=== PATIENT | female | born 1980 | race Caucasian/White ===

== ENCOUNTER 2016-12-18 08:25 | Day surgery (SDC) | payer MEDICARE, MEDICAID ==
[~2016-12-18] VITALS: Ht 157.5 cm; Wt 78.0 kg
[2016-12-18] VITALS (7 sets, daily range): BP systolic 108–137; BP diastolic 55–78
[~2016-12-18 08:25] MED LIST: GABA-283 PO; KLON0.5T PO; OXYC15TA76 PO; PROAAER10 INH; TIZA4CAP3 PO; TOPA200T7 PO
[2016-12-18] MEDS ORDERED: LR 1,000 ML IV SCH ×2 (08:45→16:15)
[2016-12-18] MEDS ORDERED: CLINDAMYCIN 900 MG/50 ML PREMIX BAG As Ordered ONE (08:48)
[2016-12-18] MEDS ORDERED: CLINDAMYCIN 900 MG in APPROPRIATE DILUENT 1 EA IV ONE (09:00)
[2016-12-18] MEDS ORDERED: DICY20TA11 (09:04)
[2016-12-18] MEDS ORDERED: DIAZ2TAB PO (09:04)
[2016-12-18] MEDS ORDERED: BELS1TAB2 (09:04)
[2016-12-18] MEDS ORDERED: MIDAZOLAM INJ 2 MG/2 ML VIAL (J2250) As Ordered ONE (10:24)
[2016-12-18] MEDS ORDERED: LIDOCAINE 2% INJ 100 MG/5 ML SDV (FOR ANES.) As Ordered ONE (10:24)
[2016-12-18] MEDS ORDERED: ROCURONIUM BROMIDE 50 MG/5 ML VIAL As Ordered ONE (10:24)
[2016-12-18] MEDS ORDERED: fentaNYL 100 MCG/2 ML INJECTION (J3010) As Ordered ONE ×4 (10:24→15:15)
[2016-12-18] MEDS ORDERED: dexameTHASONE 4 MG/ML 1ML VIAL (J1100) As Ordered ONE (10:24)
[2016-12-18] MEDS ORDERED: PROPOFOL 200 MG/20 ML VIAL As Ordered ONE ×5 (10:24→14:24)
[2016-12-18] MEDS ORDERED: NICOTINE 21MG/24HR 1 EA TRANSDERMAL TD ONE (10:30)
[2016-12-18] MEDS ORDERED: ALBUTEROL SULFATE 2.5 MG/0.5 ML INH NEB SOLN INH ONE (10:30)
[2016-12-18] MEDS ORDERED: BACITRACIN PWD 50,000 UNITS VIAL As Ordered ONE (11:08)
[2016-12-18] MEDS ORDERED: BUPIVACAINE HCL 0.5% 10 ML VIAL As Ordered ONE (11:08)
[2016-12-18] MEDS ORDERED: BUPIVACAINE LIPOSOME/PF 1.3% 20 ML VIAL (13.3MG/ML)(EXPAREL) As Ordered ONE (11:08)
[2016-12-18] MEDS ORDERED: REMIFENTANIL 1MG 3ML VIAL As Ordered ONE (11:52)
[2016-12-18] MEDS ORDERED: SUGAMMADEX SODIUM 500 MG/5 ML VIAL (BRIDION) As Ordered ONE (13:35)
[2016-12-18] MEDS ORDERED: HYDROmorphone HCL 2 MG/ML 1ML VIAL (J1170) As Ordered ONE (13:40)
[2016-12-18] MEDS ORDERED: diphenhydrAMINE INJ 50MG/ML VIAL (J1200) As Ordered ONE (14:31)
--- NOTE | 2016-12-18 15:48 | REP ---
Partial thoracic spine series: Three views. History: Low back pain. 32 seconds of fluoroscopy time is reported. Findings: A sequence of three last image hold fluoroscopic spot views of the thoracic spine and abdomen document dorsal column stimulator placement. Signed by Sean Rush MD 12/18/2016 03:41 P
[2016-12-18] MEDS ORDERED: fentaNYL 100 MCG/2 ML INJECTION (J3010) IV PRN (16:15)
[2016-12-18] MEDS ORDERED: ONDANSETRON 4MG/2ML VIAL (J2405) IV PRN ×2 (16:15)
[2016-12-18] MEDS: HYDROmorphone HCL 1 MG/ML SYRINGE (J1170) IV PRN ×5 (16:27→16:47)
[2016-12-18] MEDS ORDERED: clonazePAM 0.5 MG TAB PO PRN (18:00)
[2016-12-18] MEDS: ACETAMINOPHEN TAB 650MG DOSE (2X325MG) PO SCH ×2 (19:08→21:08)
[2016-12-18] MEDS: VANCOMYCIN HCL 1,000 MG, VIAL MATE ADAPTER 1 EACH in D5W 250 ML IV SCH (19:08)
[2016-12-18] MEDS: DICYCLOMINE 10 MG CAP PO SCH (19:09)
[2016-12-18] MEDS: GABAPENTIN 400 MG CAP PO SCH (19:09)
[2016-12-18] MEDS: oxyCODONE 5MG TAB PO PRN (20:19)
[2016-12-18] MEDS ORDERED: ENTER DRUG NAME HERE (PATIENT'S OWN MED) PO SCH (21:00)
[2016-12-18] MEDS ORDERED: TOPIRAMATE (TopAMAX) 100 MG TAB PO SCH (21:00)
[2016-12-18] MEDS: tiZANidine 4 MG TAB PO SCH (21:08)
[2016-12-19] VITALS: BP 108/59
[2016-12-19] MEDS: oxyCODONE 5MG TAB PO PRN ×3 (00:20→08:44)
[2016-12-19] MEDS: ACETAMINOPHEN TAB 650MG DOSE (2X325MG) PO SCH ×2 (01:07→06:00)
[2016-12-19 04:00] VITALS: BP 111/67
[2016-12-19] MEDS: VANCOMYCIN HCL 1,000 MG, VIAL MATE ADAPTER 1 EACH in D5W 250 ML IV SCH (04:24)
[2016-12-19] MEDS: tiZANidine 4 MG TAB PO SCH (05:51)
[2016-12-19] MEDS: DICYCLOMINE 10 MG CAP PO SCH (08:43)
[2016-12-19] MEDS: GABAPENTIN 400 MG CAP PO SCH (08:43)
[2016-12-19 08:45] VITALS: BP 114/64
--- NOTE | 2016-12-19 19:43 | ROOPDOC ---
[facility] Report Of Operation Report of Operation DATE OF SURGERY: 12/18/2016 SURGEON: Dr. Diego Ellison MANAGER LEGAL: N/a PREOPERATIVE DIAGNOSIS: Intractable back and right leg pain. POSTOPERATIVE DIAGNOSIS: Same PROCEDURE PERFORMED: 1. Partial bilateral laminectomy T9-T10. 2. Insertion of epidural spinal cord stimulator at T7-8 ([employer], [place] [employer]). 3. Electronic programming and interrogation of battery analysis ([employer], [employer] 4. Subcutaneous implantation of pulse stimulator through separate incision. 5. lntra-operative use of C-arm fluoroscopy. 6. Electrophysiological monitoring of somatosensory and central motor evoked potentials of upper and lower extremities ANESTHESIA: GETA. ESTIMATED BLOOD LOSS: 50 cc. FINDINGS : Normal dura of thoracic spinal cord. DRAINS: 0 COMPLICATIONS: None. DISPOSITION: Stable to the PACU. INDICATIONS FOR THE PROCEDURE HISTORY: Mrs. Palmer is a 36 y/o F with signs, symptoms and radiographic evidence of intractable back and right leg pain without history of post- laminectomy syndrome. She has been treated with (physical therapy, multiple pain medications, nerve blocks) with failure to address the symptomatology and decided to undergo insertion of a spinal cord stimulator. She underwent successful trial placement by [facility] and wished to have a permanent SCS implanted. SURGICAL RISKS: The patient and her family were well apprised of all objectives, benefits, risks and potential complications of the procedure, including but not limited to : worsening of current status, the possible need for further procedures, the risk of infection, headaches, CSF leak, possible spinal nerve injury resulting in paralysis, infection, injury to major vessels causing hemorrhage, stroke, loss of language function, coma and even . No assurance was given whether symptoms would improve following the procedure. The surgery is technically difficult procedure and despite the significant discomfort for the patient and the best effort of the physician, the surgery may be unsuccessful or may need to be aborted. Informed consent was obtained and secured in the chart after the patient and family voiced understanding of these risks and decided to proceed with the operation. DESCRIPTION OF THE PROCEDURE The patient was transferred to the operating room. He was given preoperative prophylactic IV antibiotics. ANESTHESIA: The patient was sedated and intubated without difficulty by the anesthesia service. Eyes were taped shut after ointment was applied to prevent corneal abrasion. A Ellen Hugger was placed over the upper body to maintain control of core body temperature. The electrophysiology monitoring team inserted needles in their proper locations and baseline SSEPs and motor-evoked potentials were obtained. POSITIONING: The patient was turned prone on gel pads of Thony table. All pressure points were carefully padded. OPERATIVE TECHNIQUE: The patient was prepped and draped in the standard sterile fashion. The C-arm fluoroscopy was draped and brought in to the operative field and the T9-T10 was identified. The skin was subsequently opened sharply with a # 15 scalpel blade. Dissection was carried down superiorly and inferiorly in the midline to expose supraspinous ligament and laminas. The musculature was elevated subperiosteally to expose the facets bilaterally with electrocautery and Lux elevator. Hemostasis was achieved. Self-retaining retractors were then inserted. Spinal processes resection and partial laminectomy of T9 and T10 levels were performed. An ultrasound bone dissector Bone[employer]pel was used to remove T9and T10 laminas. The ligamentum flavum was then easily removed with Kerrison roungers. Epidural space was dissected with plastic dissector from [employer] Bleeding from epidural veins has been controlled bipolar cautery. 32-contact assistant professor surgical technology has been inserted to the level of middle T7 vertebra into the epidural space without difficulty. Placement has been confirmed by C-arm fluoroscopy. The skin over the Right flank an approximately 5 cm incision performed with a # 15 scalpel blade. A pocket was developed for placement of the battery pulse generator. Utilizing a sharp trocar, a plastic cannula was brought from the spinal incision down into the flank incision; left in place and the electrodes passed through. The electrodes were then connected to the battery pulse. At this point, the pulse generator senior clinical sas programmer was brought near the operative field. The battery pulse generator was interrogated intraoperatively and programmed. The stimulator was set wiressly. The battery pulse generator was then secured to the fascia utilizing absorbable suture. In the spine incision, the electrodes were secured to the fascial edge silk suture as well. The fascial planes and the muscles were approximated utilizing 0 polyglactin synthetic absorbable suture Vicryl. The wound was irrigated copiously with antibiotic saline solution. The skin was re-approximated with interrupted 2-0 polyglactin synthetic absorbable suture Vicryl. The skin was then closed with Dermabond. The flank wound was also copiously irrigated with antibiotic saline solution and closed in layers utilizing 1-0 and 3-0 polyglactin synthetic absorbable suture Vicryl. The skin was then closed with wound closing system Prineo. Utilizing the pulse generator senior clinical sas programmer, verification was obtained at the end of the case to ensure adequate output reading from the newly placed device. All sponge counts, needle counts and instrument counts were correct at the end of the case times two. The electrophysiological monitoring remained stable from baseline through the end of the procedure. The patient tolerated the procedure well, without any complications and was transferred in stable condition to the recovery room. DIEGO ELLISON MD Dec 19, 2016 19:43
== END 2016-12-19 09:00 | disposition home or self-care (01) ==
LOC: M SDC 08:25 → M PED 17:00 → M SDC 12-19 09:00
PROVIDERS: ATTEND Neurological Surgery
DX: M54.5 Low back pain (principal); M79.604 Pain in right leg; R29.898 Other symptoms and signs involving the musculoskeletal system; M12.9 Arthropathy, unspecified; F31.81 Bipolar II disorder; F41.0 Panic disorder [episodic paroxysmal anxiety]; F41.1 Generalized anxiety disorder; G43.909 Migraine, unspecified, not intractable, without status migrainosus; J44.9 Chronic obstructive pulmonary disease, unspecified; E66.9 Obesity, unspecified; G47.00 Insomnia, unspecified; Z88.0 Allergy status to penicillin; Z88.5 Allergy status to narcotic agent; Z79.899 Other long term (current) drug therapy; Z79.891 Long term (current) use of opiate analgesic; Z72.0 Tobacco use; Z90.710 Acquired absence of both cervix and uterus
CPT/HCPCS: 63655; 63685; 76000; C1767; C1820; J1100; J1170; J1200; J2250; J3010; J3370